=== PATIENT | female | born 1975 | race Caucasian/White ===

== ENCOUNTER 2020-11-26 10:22 | Inpatient (IN) ==
[2020-11-26] MEDS ORDERED: SODIUM CHLORIDE 0.9% 1,000 ML IV PRN (11:04)
[2020-11-26 11:31] LABS: ABG HCO3 22.6 MMOL/L (20-26); ABG Oxygen Saturation 86.3 % (95-100); ABG PCO2 40.3 MM HG (35-48); ABG PH 7.367 (7.35-7.45); ABG PO2 59.3 MM HG (80-95); ABG TCO2 22.2 MMOL/L (23-27)
[2020-11-26] MEDS ORDERED: GLUCAGON 1 MG VIAL IM PRN (12:22)
[2020-11-26] MEDS ORDERED: MORPHINE 2 MG/1 ML SYRINGE IV PRN (12:22)
[2020-11-26] MEDS ORDERED: DEXTROSE 50% 25 GM/50 ML VIAL IV PRN (12:22)
[2020-11-26] MEDS ORDERED: DOCUSATE SODIUM 100 MG CAPSULE PO PRN (12:22)
[2020-11-26] MEDS ORDERED: ALBUTEROL 2.5 MG/3 ML NEB RESP TX PRN (12:22)
[2020-11-26] MEDS ORDERED: hydrALAZINE 20 MG/1 ML VIAL IV PRN (12:22)
[2020-11-26 12:50] LABS: Alanine Aminotransferase 33 U/L (13-56); Albumin 1.4 G/DL (3.4-5.0); Alkaline Phosphatase 308 U/L (45-117); Aspartate Amino Transferase 52 U/L (0-37); Blood Urea Nitrogen 19 MG/DL (7-18); Calcium 8.6 MG/DL (8.5-10.1); Carbon Dioxide 22 MMOL/L (21-32); Estimated Glom Filtration Rate 10 ML/MIN; Glucose 75 MG/DL (74-106); Osmolality,Calculated 275.7 MOS/KG (273-304); Potassium 4.3 MMOL/L (3.5-5.1); Sodium 138 MMOL/L (136-145); Total Protein 5.9 G/DL (6.4-8.2)
[2020-11-26] MEDS ORDERED: VANCOMYCIN INJ 1,000 MG in SODIUM CHLORIDE 0.9% 250 ML IV SCH (13:00)
[2020-11-26 14:51] LABS: Albumin 1.4 G/DL (3.4-5.0); Bilirubin,Direct 0.1 MG/DL (0.0-0.20); Bilirubin,Indirect 0.3 MG/DL (0.0-1.0); Bilirubin,Total 0.4 MG/DL (0.20-1.00)
[2020-11-26] MEDS: HYDROXYCHLOROQUINE 200 MG TABLET PO SCH (16:18)
[2020-11-26] MEDS: oxyCODONE/ACETAMINOPHEN 5-325 MG TABLET PO PRN (16:18)
[2020-11-26] MEDS: GABAPENTIN 100 MG CAPSULE PO SCH ×2 (16:18→20:39)
[2020-11-26] MEDS: CALCIUM ACETATE 667 MG CAPSULE PO SCH (16:37)
[2020-11-26 17:01] LABS: % Iron Saturation 28.4 % (18-50)
[2020-11-26 17:57] LABS: Neutrophils,Peritoneal Fluid 45 %
[2020-11-26 17:58] LABS: RBC,Peritoneal Fluid 425 T/CUMM
[2020-11-26] MEDS: CYCLOBENZAPRINE 10 MG TABLET PO SCH (20:38)
[2020-11-26 20:39] LABS: Hematocrit 23.3 VOL% (35.7-47.0); Hemoglobin 7.2 GM/DL (12.0-16.0)
[2020-11-26] MEDS: ACETAMINOPHEN 325 MG TABLET PO PRN (20:43)
[2020-11-26] MEDS: CEFEPIME 1,000 MG in SODIUM CHLORIDE 0.9% 100 ML IV SCH (20:43)
[2020-11-26] MEDS: levETIRAcetam 250 MG TABLET PO SCH (20:43)
[2020-11-26] MEDS: METOPROLOL TARTRATE 25 MG TABLET PO SCH (20:44)
[2020-11-26] MEDS: ONDANSETRON 4 MG/2 ML VIAL IV PRN (22:42)
[2020-11-27 01:11] LABS: Basophils % 0.4 % (0.0-0.8); Hematocrit 21.4 VOL% (35.7-47.0); Hemoglobin 6.8 GM/DL (12.0-16.0); Immature Granulocytes % 0.4 %; Immature Granulocytes Absolute 0.03 #; Lymphocytes % 12.7 % (21.3-54.2); Mean Corpuscular HGB Conc 31.8 GM/DL (32-36); Mean Corpuscular Volume 100.9 FL (87-102); Mean Platelet Volume 9.2 FL (9.6-12.0); Monocytes % 12.3 % (1.7-12.7); Neutrophils % 74.2 % (38.7-73.9); Platelet Count 346 T/CUMM (130-400); Red Blood Count 2.12 MC/CUMM (3.8-5.5); Red Cell Distribution Width 18.5 % (9.3-17.3); White Blood Count 7.9 T/CUMM (4-12)
[2020-11-27 01:29] LABS: Calcium 8.1 MG/DL (8.5-10.1); Osmolality,Calculated 272.1 MOS/KG (273-304); Potassium 4.4 MMOL/L (3.5-5.1)
[2020-11-27 02:31] LABS: Band Neutrophils 15 % (0-10); Eosinophils 1 % (0-10); Lymphocytes 12 % (20-55); Metamyelocytes 5 %; Segmented Neutrophils 55 % (50-85); Total Cells Counted 100
[2020-11-27 02:33] LABS: Hypochromasia 1+; Platelet Estimate Normal
[2020-11-27 02:36] LABS: Reactive Lymphocytes Few
[2020-11-27] MEDS: ONDANSETRON 4 MG/2 ML VIAL IV PRN ×2 (05:42→13:47)
[2020-11-27] MEDS ORDERED: SODIUM CHLORIDE 0.9% 1,000 ML IV PRN (07:39)
[2020-11-27] MEDS: ASPIRIN EC 325 MG TABLET PO SCH (09:00)
[2020-11-27] MEDS: CYCLOBENZAPRINE 10 MG TABLET PO SCH ×2 (09:00→20:22)
[2020-11-27] MEDS: levETIRAcetam 250 MG TABLET PO SCH ×2 (09:01→20:22)
[2020-11-27] MEDS: PANTOPRAZOLE 40 MG TABLET PO SCH (09:01)
[2020-11-27] MEDS: METOPROLOL TARTRATE 25 MG TABLET PO SCH ×2 (09:01→20:22)
[2020-11-27] MEDS: GABAPENTIN 100 MG CAPSULE PO SCH ×3 (09:01→20:22)
[2020-11-27] MEDS: calcitrioL 0.25 MCG CAPSULE PO SCH (09:01)
[2020-11-27] MEDS: ESCITALOPRAM 10 MG TABLET PO SCH (09:01)
[2020-11-27] MEDS: CALCIUM ACETATE 667 MG CAPSULE PO SCH ×3 (09:01→17:04)
[2020-11-27] MEDS: oxyCODONE/ACETAMINOPHEN 5-325 MG TABLET PO PRN ×2 (09:03→13:47)
[2020-11-27] MEDS ORDERED: HEPARIN 10,000 UNIT/10 ML VIAL IV SCH (12:30)
[2020-11-27 14:17] LABS: INR 4.3; PT Patient Result 43.4 SECS (10.5-12.0)
[2020-11-27] MEDS: HYDROXYCHLOROQUINE 200 MG TABLET PO SCH (15:04)
[2020-11-27 15:20] LABS: Hematocrit 36.2 VOL% (35.7-47.0); Hemoglobin 11.8 GM/DL (12.0-16.0)
[2020-11-27] MEDS: CEFEPIME 1,000 MG in SODIUM CHLORIDE 0.9% 100 ML IV SCH (20:27)
[2020-11-27] MEDS: ACETAMINOPHEN 325 MG TABLET PO PRN (23:29)
[2020-11-28 02:16] LABS: INR 3.1; PT Patient Result 31.9 SECS (10.5-12.0)
[2020-11-28 02:25] LABS: Calcium 8.5 MG/DL (8.5-10.1); Potassium 3.6 MMOL/L (3.5-5.1)
[2020-11-28] MEDS: METOPROLOL TARTRATE 25 MG TABLET PO SCH ×2 (08:16→20:57)
[2020-11-28] MEDS: levETIRAcetam 250 MG TABLET PO SCH ×2 (08:16→20:56)
[2020-11-28] MEDS: ASPIRIN EC 325 MG TABLET PO SCH (08:16)
[2020-11-28] MEDS: PANTOPRAZOLE 40 MG TABLET PO SCH (08:16)
[2020-11-28] MEDS: GABAPENTIN 100 MG CAPSULE PO SCH ×3 (08:16→20:56)
[2020-11-28] MEDS: ESCITALOPRAM 10 MG TABLET PO SCH (08:16)
[2020-11-28] MEDS: CYCLOBENZAPRINE 10 MG TABLET PO SCH ×2 (08:16→20:56)
[2020-11-28] MEDS: CALCIUM ACETATE 667 MG CAPSULE PO SCH ×3 (08:16→17:37)
[2020-11-28] MEDS: calcitrioL 0.25 MCG CAPSULE PO SCH (08:16)
[2020-11-28] MEDS: FERROUS SULFATE 325 MG TABLET PO SCH ×3 (08:17→20:56)
[2020-11-28 08:23] LABS: Basophils # 0.1 10*3/uL (0.0-0.2); Basophils % 0.4 % (0.0-0.8); Eosinophils % 8.7 % (0.00-10.9); Hematocrit 34.7 VOL% (35.7-47.0); Hemoglobin 11.1 GM/DL (12.0-16.0); Immature Granulocytes Absolute 0.12 #; Lymphocytes % 8.4 % (21.3-54.2); Mean Corpuscular Volume 94.3 FL (87-102); Monocytes % 5.8 % (1.7-12.7); Neutrophils % 75.7 % (38.7-73.9); Platelet Count 320 T/CUMM (130-400); Red Blood Count 3.68 MC/CUMM (3.8-5.5); Red Cell Distribution Width 18.9 % (9.3-17.3); White Blood Count 11.7 T/CUMM (4-12)
[2020-11-28 08:40] LABS: Calcium 8.6 MG/DL (8.5-10.1); Osmolality,Calculated 272.8 MOS/KG (273-304); Potassium 3.4 MMOL/L (3.5-5.1)
[2020-11-28 08:46] LABS: Band Neutrophils 2 % (0-10); Eosinophils 11 % (0-10); Hypochromasia Slight; Lymphocytes 11 % (20-55); Segmented Neutrophils 70 % (50-85); Total Cells Counted 100
[2020-11-28 08:47] LABS: Microcytosis 1+; Ovalocytes Slight; Platelet Estimate Normal; Polychromasia Slight
[2020-11-28] MEDS ORDERED: VANCOMYCIN INJ 500 MG in SODIUM CHLORIDE 0.9% 100 ML IV PRN (12:10)
[2020-11-28] MEDS: OXcarbazepine 300 MG TABLET PO SCH (12:15)
[2020-11-28] MEDS ORDERED: VANCOMYCIN INJ 1,250 MG in SODIUM CHLORIDE 0.9% 250 ML IV ONE (13:00)
[2020-11-28] MEDS: HYDROXYCHLOROQUINE 200 MG TABLET PO SCH (14:20)
[2020-11-28] MEDS: oxyCODONE/ACETAMINOPHEN 5-325 MG TABLET PO PRN (20:57)
[2020-11-28] MEDS: guaiFENesin 200 MG/10 ML UDCUP PO PRN (20:57)
[2020-11-28] MEDS ORDERED: MIRTAZAPINE 15 MG TABLET PO SCH (21:00)
[2020-11-29 01:42] LABS: Calcium 8.4 MG/DL (8.5-10.1); Osmolality,Calculated 271.1 MOS/KG (273-304); Potassium 3.3 MMOL/L (3.5-5.1)
[2020-11-29 01:44] LABS: Basophils # 0.1 10*3/uL (0.0-0.2); Basophils % 0.4 % (0.0-0.8); Eosinophils # 1.5 10*3/uL (0.0-0.87); Hematocrit 31.6 VOL% (35.7-47.0); Hemoglobin 10.2 GM/DL (12.0-16.0); Immature Granulocytes % 0.5 %; Immature Granulocytes Absolute 0.07 #; Lymphocytes # 1.3 10*3/uL (1.4-4.0); Lymphocytes % 9.7 % (21.3-54.2); Mean Corpuscular HGB Conc 32.3 GM/DL (32-36); Mean Corpuscular Volume 94.9 FL (87-102); Mean Platelet Volume 9.1 FL (9.6-12.0); Monocytes % 4.3 % (1.7-12.7); Neutrophils % 74.1 % (38.7-73.9); Platelet Count 288 T/CUMM (130-400); Red Blood Count 3.33 MC/CUMM (3.8-5.5); Red Cell Distribution Width 18.4 % (9.3-17.3); White Blood Count 13.6 T/CUMM (4-12)
[2020-11-29 02:12] LABS: Band Neutrophils 2 % (0-10); Eosinophils 11 % (0-10); Lymphocytes 6 % (20-55); Segmented Neutrophils 77 % (50-85); Total Cells Counted 100
[2020-11-29 02:13] LABS: Hypochromasia 1+; Platelet Estimate Normal
[2020-11-29] MEDS: OXcarbazepine 300 MG TABLET PO SCH (08:47)
[2020-11-29] MEDS: levETIRAcetam 250 MG TABLET PO SCH ×2 (08:47→21:40)
[2020-11-29] MEDS: FERROUS SULFATE 325 MG TABLET PO SCH ×3 (08:47→21:40)
[2020-11-29] MEDS: calcitrioL 0.25 MCG CAPSULE PO SCH (08:47)
[2020-11-29] MEDS: CYCLOBENZAPRINE 10 MG TABLET PO SCH ×2 (08:47→21:40)
[2020-11-29] MEDS: ASPIRIN EC 325 MG TABLET PO SCH (08:47)
[2020-11-29] MEDS: METOPROLOL TARTRATE 25 MG TABLET PO SCH ×2 (08:47→21:40)
[2020-11-29] MEDS: ESCITALOPRAM 10 MG TABLET PO SCH (08:47)
[2020-11-29] MEDS: GABAPENTIN 100 MG CAPSULE PO SCH ×3 (08:47→21:40)
[2020-11-29] MEDS: CALCIUM ACETATE 667 MG CAPSULE PO SCH ×3 (08:47→16:50)
[2020-11-29] MEDS: PANTOPRAZOLE 40 MG TABLET PO SCH (08:47)
[2020-11-29] MEDS: ALBUMIN 25% 25 GM/100 ML VIAL IV SCH (14:21)
[2020-11-29] MEDS: HYDROXYCHLOROQUINE 200 MG TABLET PO SCH (14:35)
[2020-11-29] MEDS ORDERED: VANCOMYCIN INJ 500 MG in SODIUM CHLORIDE 0.9% 100 ML IV ONE (17:00)
[2020-11-30 05:57] LABS: Basophils % 0.4 % (0.0-0.8); Eosinophils # 0.9 10*3/uL (0.0-0.87); Hematocrit 32.3 VOL% (35.7-47.0); Hemoglobin 10.5 GM/DL (12.0-16.0); Immature Granulocytes % 0.7 %; Immature Granulocytes Absolute 0.07 #; Lymphocytes # 1.1 10*3/uL (1.4-4.0); Mean Corpuscular HGB Conc 32.5 GM/DL (32-36); Mean Corpuscular Volume 94.7 FL (87-102); Mean Platelet Volume 9.4 FL (9.6-12.0); Monocytes % 5.6 % (1.7-12.7); Neutrophils % 73.3 % (38.7-73.9); Platelet Count 296 T/CUMM (130-400); Red Blood Count 3.41 MC/CUMM (3.8-5.5); Red Cell Distribution Width 17.7 % (9.3-17.3); White Blood Count 9.8 T/CUMM (4-12)
[2020-11-30 06:03] LABS: INR 1.4; PT Patient Result 14.8 SECS (10.5-12.0)
[2020-11-30 06:20] LABS: Eosinophils 6 % (0-10); Hypochromasia 1+; Lymphocytes 6 % (20-55); Microcytosis 1+; Platelet Estimate Adequate; Segmented Neutrophils 83 % (50-85); Total Cells Counted 100
[2020-11-30 06:28] LABS: Calcium 8.9 MG/DL (8.5-10.1); Osmolality,Calculated 275.4 MOS/KG (273-304); Potassium 2.8 MMOL/L (3.5-5.1)
[2020-11-30] MEDS: ASPIRIN EC 325 MG TABLET PO SCH (08:09)
[2020-11-30] MEDS: PANTOPRAZOLE 40 MG TABLET PO SCH (08:10)
[2020-11-30] MEDS: ESCITALOPRAM 10 MG TABLET PO SCH (08:10)
[2020-11-30] MEDS: OXcarbazepine 300 MG TABLET PO SCH (08:10)
[2020-11-30] MEDS: CYCLOBENZAPRINE 10 MG TABLET PO SCH (08:10)
[2020-11-30] MEDS: levETIRAcetam 250 MG TABLET PO SCH ×2 (08:10→20:21)
[2020-11-30] MEDS: calcitrioL 0.25 MCG CAPSULE PO SCH (08:10)
[2020-11-30] MEDS: FERROUS SULFATE 325 MG TABLET PO SCH ×3 (08:10→20:20)
[2020-11-30] MEDS: METOPROLOL TARTRATE 25 MG TABLET PO SCH ×2 (08:10→20:21)
[2020-11-30] MEDS: GABAPENTIN 100 MG CAPSULE PO SCH ×3 (08:10→20:21)
[2020-11-30] MEDS: CALCIUM ACETATE 667 MG CAPSULE PO SCH ×3 (08:11→16:08)
[2020-11-30] MEDS ORDERED: CYCLOBENZAPRINE 10 MG TABLET PO PRN (11:56)
[2020-11-30] MEDS: HYDROXYCHLOROQUINE 200 MG TABLET PO SCH (15:38)
[2020-11-30] MEDS: oxyCODONE/ACETAMINOPHEN 5-325 MG TABLET PO PRN (15:43)
[2020-12-01] MEDS: PANTOPRAZOLE 40 MG TABLET PO SCH (09:26)
[2020-12-01] MEDS: CALCIUM ACETATE 667 MG CAPSULE PO SCH ×3 (09:26→18:12)
[2020-12-01] MEDS: METOPROLOL TARTRATE 25 MG TABLET PO SCH ×2 (09:26→20:50)
[2020-12-01] MEDS: levETIRAcetam 250 MG TABLET PO SCH ×2 (09:26→20:51)
[2020-12-01] MEDS: calcitrioL 0.25 MCG CAPSULE PO SCH (09:26)
[2020-12-01] MEDS: GABAPENTIN 100 MG CAPSULE PO SCH ×3 (09:26→20:51)
[2020-12-01] MEDS: ASPIRIN EC 325 MG TABLET PO SCH (09:26)
[2020-12-01] MEDS: FERROUS SULFATE 325 MG TABLET PO SCH ×3 (09:26→20:50)
[2020-12-01] MEDS: ESCITALOPRAM 10 MG TABLET PO SCH (09:26)
[2020-12-01] MEDS: OXcarbazepine 300 MG TABLET PO SCH ×2 (09:27→20:51)
[2020-12-01] MEDS: ALBUMIN 25% 25 GM/100 ML VIAL IV SCH (10:24)
[2020-12-01] MEDS ORDERED: LIDOCAINE 1%/EPI INJ 20 ML VIAL ONE (12:26)
[2020-12-01] MEDS ORDERED: MIDAZOLAM 2 MG/2 ML VIAL ONE ×2 (13:44→15:55)
[2020-12-01] MEDS ORDERED: propofoL 200 MG/20 ML VIAL IV ONE ×2 (13:48→15:55)
[2020-12-01] MEDS ORDERED: ETOMIDATE 40 MG/20 ML VIAL IV ONE ×2 (13:48→16:31)
[2020-12-01] MEDS ORDERED: fentaNYL 100 MCG/2 ML VIAL ONE (14:05)
[2020-12-01] MEDS ORDERED: SODIUM CHLORIDE 0.9% 250 ML IV ONE ×4 (14:25→18:53)
[2020-12-01] MEDS ORDERED: ONDANSETRON 4 MG/2 ML VIAL ONE (15:55)
[2020-12-01] MEDS ORDERED: LIDOCAINE 2% 5 ML VIAL ONE (15:55)
[2020-12-01] MEDS ORDERED: DEXAMETHASONE 4 MG/1 ML VIAL ONE ×2 (15:55→16:08)
[2020-12-01] MEDS: HYDROXYCHLOROQUINE 200 MG TABLET PO SCH (15:58)
[2020-12-01] MEDS ORDERED: DEXMEDETOMIDINE 200 MCG/2 ML VIAL ONE (16:01)
[2020-12-01] MEDS ORDERED: SODIUM CHLORIDE 0.9% 100 ML IV ONE (16:22)
[2020-12-01] MEDS ORDERED: PHENYLEPHRINE 10 MG/1 ML VIAL IV ONE (16:22)
[2020-12-01] MEDS ORDERED: ACETAMINOPHEN INJ 1,000 MG/100 ML VIAL IV ONE (16:26)
[2020-12-01] MEDS ORDERED: VANCOMYCIN INJ 500 MG in SODIUM CHLORIDE 0.9% 100 ML IV ONE (17:00)
[2020-12-01] MEDS ORDERED: flumazeniL 0.5 MG/5 ML VIAL IV ONE (17:25)
[2020-12-01] MEDS ORDERED: ePHEDrine 50 MG/ML VIAL IV ONE ×4 (17:28→17:43)
[2020-12-01] MEDS ORDERED: ePHEDrine 50 MG/ML VIAL IV PRN (17:28)
[2020-12-01] MEDS ORDERED: ePHEDrine 50 MG/ML VIAL ONE (17:31)
[2020-12-02 06:38] LABS: Basophils % 0.3 % (0.0-0.8); Eosinophils # 0.2 10*3/uL (0.0-0.87); Eosinophils % 3.3 % (0.00-10.9); Hematocrit 20.5 VOL% (35.7-47.0); Hemoglobin 6.5 GM/DL (12.0-16.0); Immature Granulocytes Absolute 0.18 #; Lymphocytes % 16.1 % (21.3-54.2); Mean Corpuscular HGB Conc 31.7 GM/DL (32-36); Mean Corpuscular Volume 98.1 FL (87-102); Mean Platelet Volume 10.1 FL (9.6-12.0); Monocytes % 10.5 % (1.7-12.7); Neutrophils % 66.8 % (38.7-73.9); Platelet Count 243 T/CUMM (130-400); Red Blood Count 2.09 MC/CUMM (3.8-5.5); Red Cell Distribution Width 17.2 % (9.3-17.3); White Blood Count 6.1 T/CUMM (4-12)
[2020-12-02 06:50] LABS: PT Patient Result 11.4 SECS (10.5-12.0)
[2020-12-02 07:06] LABS: Calcium 8.3 MG/DL (8.5-10.1); Osmolality,Calculated 279.4 MOS/KG (273-304); Potassium 3.2 MMOL/L (3.5-5.1)
[2020-12-02] MEDS ORDERED: SODIUM CHLORIDE 0.9% 1,000 ML IV PRN (07:14)
[2020-12-02 07:55] LABS: Hemoglobin 6.3 GM/DL (12.0-16.0)
[2020-12-02] MEDS: oxyCODONE/ACETAMINOPHEN 5-325 MG TABLET PO PRN ×2 (10:01→20:54)
[2020-12-02] MEDS: ESCITALOPRAM 10 MG TABLET PO SCH (10:27)
[2020-12-02] MEDS: GABAPENTIN 100 MG CAPSULE PO SCH ×3 (10:27→20:51)
[2020-12-02] MEDS: OXcarbazepine 300 MG TABLET PO SCH (10:27)
[2020-12-02] MEDS: PANTOPRAZOLE 40 MG TABLET PO SCH (10:27)
[2020-12-02] MEDS: levETIRAcetam 250 MG TABLET PO SCH ×2 (10:28→20:51)
[2020-12-02] MEDS: METOPROLOL TARTRATE 25 MG TABLET PO SCH ×2 (10:28→20:51)
[2020-12-02] MEDS: calcitrioL 0.25 MCG CAPSULE PO SCH (10:28)
[2020-12-02] MEDS: FERROUS SULFATE 325 MG TABLET PO SCH ×3 (10:28→20:51)
[2020-12-02] MEDS: ASPIRIN EC 325 MG TABLET PO SCH (10:28)
[2020-12-02] MEDS: CALCIUM ACETATE 667 MG CAPSULE PO SCH ×3 (10:29→16:44)
[2020-12-02] MEDS: HYDROXYCHLOROQUINE 200 MG TABLET PO SCH (14:50)
[2020-12-02] MEDS: ACETAMINOPHEN 325 MG TABLET PO PRN (14:50)
[2020-12-02 15:08] LABS: Hematocrit 24.7 VOL% (35.7-47.0)
[2020-12-02 15:14] LABS: Hemoglobin 7.8 GM/DL (12.0-16.0)
[2020-12-02] MEDS: guaiFENesin 200 MG/10 ML UDCUP PO PRN (16:44)
[2020-12-02 19:48] LABS: Hematocrit 30.3 VOL% (35.7-47.0)
[2020-12-02 20:28] LABS: Hemoglobin 9.7 GM/DL (12.0-16.0)
[2020-12-03 01:57] LABS: Hematocrit 28.8 VOL% (35.7-47.0); Hemoglobin 9.6 GM/DL (12.0-16.0)
[2020-12-03 05:31] LABS: Basophils # 0.1 10*3/uL (0.0-0.2); Basophils % 1.1 % (0.0-0.8); Eosinophils # 1.2 10*3/uL (0.0-0.87); Hematocrit 30.3 VOL% (35.7-47.0); Hemoglobin 9.8 GM/DL (12.0-16.0); Immature Granulocytes Absolute 0.41 #; Lymphocytes # 1.3 10*3/uL (1.4-4.0); Lymphocytes % 15.3 % (21.3-54.2); Mean Corpuscular HGB Conc 32.3 GM/DL (32-36); Mean Corpuscular Volume 89.4 FL (87-102); Mean Platelet Volume 9.9 FL (9.6-12.0); Monocytes % 11.9 % (1.7-12.7); Neutrophils % 51.7 % (38.7-73.9); Platelet Count 216 T/CUMM (130-400); Red Cell Distribution Width 18.6 % (9.3-17.3); White Blood Count 8.3 T/CUMM (4-12)
[2020-12-03 05:35] LABS: Red Blood Count 3.39 MC/CUMM (3.8-5.5)
[2020-12-03 06:03] LABS: Calcium 9.2 MG/DL (8.5-10.1); Osmolality,Calculated 267.4 MOS/KG (273-304); Potassium 3.7 MMOL/L (3.5-5.1)
[2020-12-03 06:07] LABS: Band Neutrophils 6 % (0-10); Eosinophils 14 % (0-10); Lymphocytes 19 % (20-55); Platelet Estimate Normal; Segmented Neutrophils 51 % (50-85); Total Cells Counted 100
[2020-12-03 06:08] LABS: Anisocytosis 2+; Macrocytosis Slight
[2020-12-03] MEDS: ESCITALOPRAM 10 MG TABLET PO SCH (10:40)
[2020-12-03] MEDS: CALCIUM ACETATE 667 MG CAPSULE PO SCH ×3 (10:40→16:42)
[2020-12-03] MEDS: PANTOPRAZOLE 40 MG TABLET PO SCH (10:40)
[2020-12-03] MEDS: ASPIRIN EC 325 MG TABLET PO SCH (10:40)
[2020-12-03] MEDS: OXcarbazepine 300 MG TABLET PO SCH (10:41)
[2020-12-03] MEDS: FERROUS SULFATE 325 MG TABLET PO SCH ×3 (10:41→21:04)
[2020-12-03] MEDS: METOPROLOL TARTRATE 25 MG TABLET PO SCH ×2 (10:41→21:04)
[2020-12-03] MEDS: calcitrioL 0.25 MCG CAPSULE PO SCH (10:42)
[2020-12-03] MEDS: oxyCODONE/ACETAMINOPHEN 5-325 MG TABLET PO PRN ×2 (10:42→21:08)
[2020-12-03] MEDS: GABAPENTIN 100 MG CAPSULE PO SCH ×3 (10:42→21:05)
[2020-12-03] MEDS: levETIRAcetam 250 MG TABLET PO SCH ×2 (10:42→21:05)
[2020-12-03] MEDS: HYDROXYCHLOROQUINE 200 MG TABLET PO SCH (16:42)
[2020-12-04 06:04] LABS: Basophils # 0.1 10*3/uL (0.0-0.2); Basophils % 1.3 % (0.0-0.8); Eosinophils # 1.4 10*3/uL (0.0-0.87); Eosinophils % 14.6 % (0.00-10.9); Hematocrit 32.8 VOL% (35.7-47.0); Hemoglobin 10.4 GM/DL (12.0-16.0); Immature Granulocytes % 6.9 %; Immature Granulocytes Absolute 0.68 #; Lymphocytes # 1.4 10*3/uL (1.4-4.0); Lymphocytes % 14.6 % (21.3-54.2); Mean Corpuscular HGB Conc 31.7 GM/DL (32-36); Mean Corpuscular Volume 91.6 FL (87-102); Mean Platelet Volume 10.5 FL (9.6-12.0); Monocytes % 9.8 % (1.7-12.7); Neutrophils % 52.8 % (38.7-73.9); Platelet Count 297 T/CUMM (130-400); Red Blood Count 3.58 MC/CUMM (3.8-5.5); Red Cell Distribution Width 18.8 % (9.3-17.3); White Blood Count 9.9 T/CUMM (4-12)
[2020-12-04] MEDS ORDERED: HEPARIN 5,000 UNIT/1 ML VIAL ONE (06:19)
[2020-12-04] MEDS ORDERED: BUPIVACAINE MPF 0.25% 30 ML VIAL ONE (06:19)
[2020-12-04] MEDS ORDERED: LIDOCAINE 1%/EPI INJ 20 ML VIAL ONE (06:20)
[2020-12-04 06:47] LABS: Calcium 10.3 MG/DL (8.5-10.1); Osmolality,Calculated 263.9 MOS/KG (273-304); Potassium 4.2 MMOL/L (3.5-5.1)
[2020-12-04 06:53] LABS: Band Neutrophils 1 % (0-10); Eosinophils 13 % (0-10); Hypochromasia 1+; Lymphocytes 19 % (20-55); Microcytosis 1+; Platelet Estimate Adequate; Segmented Neutrophils 61 % (50-85); Total Cells Counted 100
[2020-12-04] MEDS ORDERED: CLINDAMYCIN INJ 900 MG/50 ML PREMIX IV ONE (07:30)
[2020-12-04] MEDS: ASPIRIN EC 325 MG TABLET PO SCH (08:59)
[2020-12-04] MEDS: FERROUS SULFATE 325 MG TABLET PO SCH ×2 (08:59→16:08)
[2020-12-04] MEDS: CALCIUM ACETATE 667 MG CAPSULE PO SCH ×3 (08:59→19:37)
[2020-12-04] MEDS: GABAPENTIN 100 MG CAPSULE PO SCH ×2 (09:00→16:10)
[2020-12-04] MEDS: levETIRAcetam 250 MG TABLET PO SCH (09:00)
[2020-12-04] MEDS: PANTOPRAZOLE 40 MG TABLET PO SCH (09:00)
[2020-12-04] MEDS: calcitrioL 0.25 MCG CAPSULE PO SCH (09:00)
[2020-12-04] MEDS: ESCITALOPRAM 10 MG TABLET PO SCH (09:00)
[2020-12-04] MEDS: METOPROLOL TARTRATE 25 MG TABLET PO SCH (09:00)
[2020-12-04] MEDS: ALBUMIN 25% 25 GM/100 ML VIAL IV SCH (09:00)
[2020-12-04] MEDS: OXcarbazepine 300 MG TABLET PO SCH (09:01)
[2020-12-04] MEDS ORDERED: propofoL 200 MG/20 ML VIAL IV ONE (09:40)
[2020-12-04] MEDS ORDERED: fentaNYL 100 MCG/2 ML VIAL ONE (09:40)
[2020-12-04] MEDS ORDERED: MIDAZOLAM 2 MG/2 ML VIAL ONE (09:40)
[2020-12-04] MEDS ORDERED: LIDOCAINE 2% 5 ML VIAL ONE (09:40)
[2020-12-04] MEDS ORDERED: TISSUE ADHESIVE 1 EACH APPLICATOR TOP ONE (11:00)
[2020-12-04] MEDS: HYDROXYCHLOROQUINE 200 MG TABLET PO SCH (15:55)
[2020-12-04] MEDS: ACETAMINOPHEN 325 MG TABLET PO PRN (16:10)
[2020-12-04] MEDS ORDERED: CEFDINIR 300 MG CAPSULE PO ONE (17:00)
[2020-12-04] MEDS ORDERED: VANCOMYCIN INJ 500 MG in SODIUM CHLORIDE 0.9% 100 ML IV ONE (17:00)
[2020-12-04 20:52] VITALS: BP 152/77
== END 2020-12-04 17:45 | disposition home health service (06) | DRG 981 ==
LOC: N.ED 10:22 → N.EDINP 12:31 → N.5E 13:23
PROVIDERS: ADMIT Internal Medicine; ATTEND Internal Medicine